=== PATIENT | female | born 1975 | race Caucasian/White ===

== ENCOUNTER → 2021-10-04 | Outpatient (CLI) | payer BC ==
[2021-10-05 09:13] LABS: RHEUMATOID ARTHRITIS FACTOR <10.0 IU/mL (<14.0)
== END ==
LOC: LAB 11:21
PROVIDERS: Nurse Practitioner Family
DX: Z00.00 Encounter for general adult medical examination without abnormal findings (principal); M54.12 Radiculopathy, cervical region; M25.50 Pain in unspecified joint; G56.00 Carpal tunnel syndrome, unspecified upper limb
CPT/HCPCS: 36415; 84550; 85652; 86038; 86431